=== PATIENT | female | born 1990 | race African-American/Black ===

== ENCOUNTER 2019-06-09 19:13 | Emergency (ER) | payer MEDICAID ==
[~2019-06-09] VITALS: Ht 149.9 cm; Wt 65.8 kg
[2019-06-09] MEDS ORDERED: SODIUM CHLORIDE 0.9% 1,000 ML IV ONE (23:13)
[2019-06-09] MEDS ORDERED: ACETAMINOPHEN 500MG TABLET PO ONE (23:15)
[2019-06-09 23:20] LABS: CLARITY URINE CLEAR (CLEAR); COLOR URINE YELLOW (YELLOW); KETONES URINE TRACE (NEGATIVE); LEUKOCYTE ESTERASE URINE 1+ (NEGATIVE); NITRITE URINE NEGATIVE (NEGATIVE); OCCULT BLOOD URINE NEGATIVE (NEGATIVE); PH URINE 6.5 (4.5-8.0); PROTEIN URINE NEGATIVE (NEGATIVE)
[2019-06-09 23:50] LABS: BASOPHILS % 1.1 % (0.0-2.0); EOSINOPHILS % 1.3 % (0.0-5.0); HEMATOCRIT. 37.7 % (36.0-48.0); LYMPHOCYTES % 17.7 % (20.0-50.0); MEAN CORPUSCULAR HEMOGLOBIN 31.5 pg (28.0-32.0); MEAN CORPUSCULAR VOLUME 91.4 fL (81.0-99.0); MEAN PLATELET VOLUME 11.1 fl (7.4-10.4); MONOCYTES % 7.2 % (2.0-8.0); NEUTROPHILS % 72.7 % (40.0-76.0); PLATELET 186 x1000/uL (130-400); RED BLOOD CELL COUNT 4.13 mill/uL (4.2-5.4); RED CELL DISTRIBUTION WIDTH 13.7 % (11.6-14.6)
[2019-06-09 23:56] LABS: CHLORIDE 108 mEq/L (98-107)
[2019-06-10 00:19] LABS: B-HCG QUANTITATIVE 63171 mIU/mL (<3)
[2019-06-10] MEDS ORDERED: FLUCONAZOLE 100MG TABLET PO ONE (00:45)
[2019-06-10 02:30] VITALS: BP 109/71
[2019-06-10] MEDS ORDERED: METRONIDAZOLE 500MG TABLET PO ONE (02:30)
== END 2019-06-10 02:57 | disposition home or self-care (01) ==
LOC: ER 19:13
DX: O23.592 Infection of other part of genital tract in pregnancy, second trimester (principal); Z3A.17 17 weeks gestation of pregnancy
CPT/HCPCS: 36415; 76805; 80053; 81003; 81025; 83690; 84702; 85025; 86850; 86900; 86901; 87210; 99284; J7030

== ENCOUNTER 2019-08-08 11:59 | Emergency (ER) | payer MEDICAID ==
[~2019-08-08] VITALS: Ht 152.4 cm; Wt 67.0 kg
[2019-08-08] MEDS ORDERED: BACITRACIN ZINC OINT UDPKT TOP ONE (13:15)
[2019-08-08] MEDS ORDERED: LIDOCAINE HCL/PF 1% 10 MG/ML 5ML VIAL IJ ONE (13:15)
[2019-08-08] MEDS ORDERED: TETANUS, DIPHTHERIA, PERTUSSIS VAC/PF 0.5ML (>7YR OLD) IM ONE (13:15)
[2019-08-08] MEDS ORDERED: IBUPROFEN 600MG TABLET PO ONE (13:15)
[2019-08-08] MEDS ORDERED: ACETAMINOPHEN 325MG TABLET PO ONE (14:30)
[2019-08-08 14:42] VITALS: BP 114/68
== END 2019-08-08 14:44 | disposition home or self-care (01) ==
LOC: ER 11:59
DX: L03.012 Cellulitis of left finger (principal)
CPT/HCPCS: 10060; 99283; Z7610

== ENCOUNTER 2019-09-25 18:37 | Emergency (ER) | payer MEDICAID ==
[~2019-09-25] VITALS: Ht 149.9 cm; Wt 70.0 kg
[2019-09-25 19:01] VITALS: BP 128/76
== END 2019-09-25 22:00 | disposition left against medical advice (07) ==
LOC: ER 18:37
DX: J02.9 Acute pharyngitis, unspecified (principal); Z53.21 Procedure and treatment not carried out due to patient leaving prior to being seen by health care provider

== ENCOUNTER 2019-11-14 11:40 | Inpatient (IN) | payer MEDICAID ==
[~2019-11-14] VITALS: Ht 149.9 cm; Wt 72.6 kg
[2019-11-14] MEDS ORDERED: LIDOCAINE HCL/PF 1% 10 MG/ML 5ML VIAL ONE (15:06)
[2019-11-14] MEDS ORDERED: DEXT 5%/LR + PITOCIN 20UNITS/L 1,000 ML IV SCH ×2 (15:11→19:27)
[2019-11-14] MEDS ORDERED: DEXT 5%/LACTATED RINGERS 1,000 ML IV SCH (15:11)
[2019-11-14] MEDS ORDERED: LIDOCAINE HCL 1% 20ML VIAL (Pyxis) INJ INFIL SCH (15:15)
[2019-11-14 15:55] LABS: BASOPHILS % 0.6 % (0.0-2.0); EOSINOPHILS % 0.2 % (0.0-5.0); HEMATOCRIT. 39.6 % (36.0-48.0); HEMOGLOBIN. 12.9 g/dL (12.0-16.0); LYMPHOCYTES % 31.7 % (20.0-50.0); MEAN CORPUSCULAR VOLUME 88.9 fL (81.0-99.0); MEAN PLATELET VOLUME 11.2 fl (7.4-10.4); MONOCYTES % 7.3 % (2.0-8.0); NEUTROPHILS % 60.2 % (40.0-76.0); PLATELET 185 x1000/uL (130-400); RED BLOOD CELL COUNT 4.45 mill/uL (4.2-5.4); RED CELL DISTRIBUTION WIDTH 15.2 % (11.6-14.6)
[2019-11-14 15:59] LABS: CLARITY URINE CLEAR (CLEAR); COLOR URINE YELLOW (YELLOW); KETONES URINE 1+ (NEGATIVE); LEUKOCYTE ESTERASE URINE 1+ (NEGATIVE); NITRITE URINE NEGATIVE (NEGATIVE); OCCULT BLOOD URINE NEGATIVE (NEGATIVE); PH URINE 7.5 (4.5-8.0); PROTEIN URINE NEGATIVE (NEGATIVE); SPECIFIC GRAVITY URINE 1.016 (1.005-1.030); UROBILINOGEN URINE 0.2 E.U./dL (0.2-1.0)
[2019-11-14] MEDS ORDERED: PENICILLIN G POTASSIUM 5 MMU in DEXT 5% WATER 100 ML IV NR (16:00)
[2019-11-14 16:17] LABS: *AMPHETAMINES SCREEN URINE NEGATIVE (NEGATIVE); *BARBITURATES SCREEN URINE NEGATIVE (NEGATIVE); *BENZODIAZEPINES SCREEN URINE NEGATIVE (NEGATIVE); OPIATES URINE SCREEN NEGATIVE (NEGATIVE)
[2019-11-14 16:18] LABS: *COCAINE SCREEN URINE NEGATIVE (NEGATIVE); CANNABINOID URINE SCREEN NEGATIVE (NEGATIVE); METHADONE URINE SCREEN NEGATIVE (NEGATIVE); PHENCYCLIDINE URINE SCREEN NEGATIVE (NEGATIVE)
[2019-11-14 16:33] LABS: HEPATITIS B SURFACE ANTIGEN NEGATIVE
[2019-11-14] MEDS ORDERED: BENZOCAINE/LANOLIN/ALOE VERA SPRAY TOP PRN (19:30)
[2019-11-14] MEDS ORDERED: LANOLIN OINT 7GM TUBE TOP PRN (19:30)
[2019-11-14] MEDS ORDERED: ACETAMINOPHEN WITH CODEINE 300/30MG TABLET PO PRN ×2 (19:30)
[2019-11-14] MEDS ORDERED: HEMORRHOIDAL SUPP PR PRN (19:30)
[2019-11-14] MEDS ORDERED: BISACODYL 10MG SUPP PR PRN (19:30)
[2019-11-14] MEDS ORDERED: GLYCERIN/WITCH HAZEL LEAF MEDICATED PAD TOP PRN (19:30)
[2019-11-14] MEDS ORDERED: PENICILLIN G POTASSIUM 2.5 MMU in DEXTROSE 5% WATER 50 ML IV SCH (20:00)
[2019-11-14 20:25] VITALS: BP 112/65
[2019-11-14 20:55] VITALS: BP 109/62
[2019-11-14 21:25] VITALS: BP 108/65
[2019-11-14 21:54] LABS: BASOPHILS % 0.4 % (0.0-2.0); HEMATOCRIT. 38.7 % (36.0-48.0); HEMOGLOBIN. 12.6 g/dL (12.0-16.0); MEAN CORPUSCULAR HEMOGLOBIN 28.8 pg (28.0-32.0); MEAN CORPUSCULAR VOLUME 88.3 fL (81.0-99.0); MEAN PLATELET VOLUME 11.4 fl (7.4-10.4); MONOCYTES % 6.6 % (2.0-8.0); PLATELET 202 x1000/uL (130-400); RED BLOOD CELL COUNT 4.38 mill/uL (4.2-5.4); RED CELL DISTRIBUTION WIDTH 14.7 % (11.6-14.6)
[2019-11-14] MEDS: MAGNESIUM/ALUMINUM HYDROXIDE/SIMETHICONE 30ML UDC PO SCH (22:24)
[2019-11-14] MEDS: DOCUSATE SODIUM 100MG CAPSULE PO SCH (22:25)
[2019-11-14] MEDS: SIMETHICONE 80MG TABLET CHEW PO SCH (22:25)
[2019-11-14 23:46] VITALS: BP 110/68
[2019-11-15] MEDS ORDERED: FERROUS SULFATE 325MG TABLET PO SCH (07:30)
[2019-11-15 08:00] VITALS: BP 104/57
[2019-11-15] MEDS: IBUPROFEN 400MG TABLET PO PRN ×3 (08:08→21:16)
[2019-11-15] MEDS ORDERED: PRENATAL VIT/FE FUMARATE/FA TABLET PO SCH (09:00)
[2019-11-15 10:41] LABS: BASOPHILS % 0.6 % (0.0-2.0); EOSINOPHILS % 0.5 % (0.0-5.0); HEMATOCRIT. 33.5 % (36.0-48.0); LYMPHOCYTES % 26.5 % (20.0-50.0); MEAN CORPUSCULAR HEMOGLOBIN 29.5 pg (28.0-32.0); MEAN CORPUSCULAR VOLUME 89.3 fL (81.0-99.0); MEAN PLATELET VOLUME 11.4 fl (7.4-10.4); MONOCYTES % 9.3 % (2.0-8.0); NEUTROPHILS % 63.1 % (40.0-76.0); PLATELET 177 x1000/uL (130-400); RED BLOOD CELL COUNT 3.75 mill/uL (4.2-5.4)
[2019-11-15 16:00] VITALS: BP 106/64
[2019-11-15 20:02] VITALS: BP 100/60
[2019-11-15] MEDS: MAGNESIUM/ALUMINUM HYDROXIDE/SIMETHICONE 30ML UDC PO SCH (21:00)
[2019-11-15] MEDS: SIMETHICONE 80MG TABLET CHEW PO SCH (21:16)
[2019-11-15] MEDS: DOCUSATE SODIUM 100MG CAPSULE PO SCH (21:16)
[2019-11-16] MEDS: IBUPROFEN 400MG TABLET PO PRN (04:08)
[2019-11-16 04:10] VITALS: BP 107/64
[2019-11-16 08:00] VITALS: BP 108/62
== END 2019-11-16 11:15 | disposition home or self-care (01) | DRG 560 ==
LOC: OBSVTOIN 11:40 → 8 EST LDRP 11:40 → 8EST 20:34
PROVIDERS: ADMIT Obstetrics & Gynecology; ATTEND Obstetrics & Gynecology
PROC: 0KQM0ZZ Repair Perineum Muscle, Open Approach (ICD-10-PCS; principal; 2019-11-14)
PROC: 10E0XZZ Delivery of Products of Conception, External Approach (ICD-10-PCS; 2019-11-14)
DX: O34.219 Maternal care for unspecified type scar from previous cesarean delivery (principal); O69.81X0 Labor and delivery complicated by cord around neck, without compression, not applicable or unspecified; O70.1 Second degree perineal laceration during delivery; O77.0 Labor and delivery complicated by meconium in amniotic fluid; Z37.0 Single live birth; Z3A.39 39 weeks gestation of pregnancy; Z79.899 Other long term (current) drug therapy
CPT/HCPCS: 36415; 76805; 76818; 80051; 80305; 81003; 85025; 86592; 86703; 86762; 86850; 86900; 87340; 99281; J2540; J2590; J3490; J7060; J7121

== ENCOUNTER 2023-02-25 22:56 | Emergency (ER) | payer MEDICAID ==
[~2023-02-25] VITALS: Ht 152.4 cm; Wt 63.0 kg
[2023-02-25 23:34] LABS: BASOPHILS % 0.7 % (0.0-2.0); EOSINOPHILS % 1.2 % (0.0-5.0); HEMATOCRIT. 40.2 % (36.0-48.0); HEMOGLOBIN. 13.6 g/dL (12.0-16.0); LYMPHOCYTES % 24.1 % (20.0-50.0); MEAN CORPUSCULAR HEMOGLOBIN 31.7 pg (28.0-32.0); MEAN CORPUSCULAR VOLUME 93.6 fL (81.0-99.0); MONOCYTES % 8.5 % (2.0-8.0); NEUTROPHILS % 65.5 % (40.0-76.0); PLATELET 215 x1000/uL (130-400); RED CELL DISTRIBUTION WIDTH 13.5 % (11.6-14.6)
[2023-02-25 23:57] LABS: CHLORIDE 109 mEq/L (98-107)
[2023-02-26 00:15] LABS: CLARITY URINE CLOUDY (CLEAR); COLOR URINE YELLOW (YELLOW); KETONES URINE NEGATIVE (NEGATIVE); LEUKOCYTE ESTERASE URINE NEGATIVE (NEGATIVE); NITRITE URINE NEGATIVE (NEGATIVE); OCCULT BLOOD URINE TRACE (NEGATIVE); PH URINE 7.5 (4.5-8.0); PROTEIN URINE NEGATIVE (NEGATIVE); SPECIFIC GRAVITY URINE 1.026 (1.005-1.030)
[2023-02-26] MEDS ORDERED: ONDA4TAB50 MT (05:20)
[2023-02-26] MEDS ORDERED: HYDR-4001 MT (05:20)
[2023-02-26 06:00] VITALS: BP 102/66
== END 2023-02-26 06:09 | disposition home or self-care (01) ==
LOC: ER 22:56
DX: K80.20 Calculus of gallbladder without cholecystitis without obstruction (principal)
CPT/HCPCS: 36415; 76700; 80053; 81003; 81025; 85025; 99284